=== PATIENT | female | born 1970 | race African-American/Black ===

== ENCOUNTER → 2019-09-15 | Outpatient (CLI) | payer MEDICAID ==
[~2019-09-15] MED LIST: ERGO2000 PO; FERR-71 PO; HYDR12.54 PO; LISI40TA4 PO
== END | disposition home or self-care (01) ==
LOC: LAB 11:57 → MERGE 11:57
PROVIDERS: ATTEND Obstetrics & Gynecology
DX: Z01.818 Encounter for other preprocedural examination (principal); Z11.59 Encounter for screening for other viral diseases
CPT/HCPCS: U0003-CS

== ENCOUNTER 2019-09-19 08:16 | Inpatient (IN) | payer MEDICAID ==
[~2019-09-19] VITALS: Ht 157.5 cm; Wt 85.4 kg
[2019-09-19] MEDS ORDERED: LACTATED RINGERS 1,000 ML IV SCH (09:15)
[2019-09-19] MEDS ORDERED: ERGO2000 PO (09:40)
[2019-09-19] MEDS ORDERED: FERR-71 PO (09:40)
[2019-09-19] MEDS ORDERED: HYDR12.54 PO (09:40)
[2019-09-19] MEDS ORDERED: LISI40TA4 PO (09:40)
[2019-09-19 10:17] LABS: CLARITY URINE CLOUDY (CLEAR); COLOR URINE YELLOW (YELLOW); KETONES URINE NEGATIVE (NEGATIVE); LEUKOCYTE ESTERASE URINE 1+ (NEGATIVE); NITRITE URINE NEGATIVE (NEGATIVE); OCCULT BLOOD URINE NEGATIVE (NEGATIVE); PH URINE 7.5 (4.5-8.0); PROTEIN URINE NEGATIVE (NEGATIVE); SPECIFIC GRAVITY URINE 1.022 (1.005-1.030); UROBILINOGEN URINE 0.2 E.U./dL (0.2-1.0)
[2019-09-19 10:17] LABS: BASOPHILS % 0.6 % (0.0-2.0); HEMATOCRIT. 41.2 % (36.0-48.0); HEMOGLOBIN. 13.9 g/dL (12.0-16.0); LYMPHOCYTES % 16.6 % (20.0-50.0); MEAN CORPUSCULAR HEMOGLOBIN 31.6 pg (28.0-32.0); MEAN CORPUSCULAR VOLUME 93.5 fL (81.0-99.0); MEAN PLATELET VOLUME 8.9 fl (7.4-10.4); MONOCYTES % 5.8 % (2.0-8.0); PLATELET 268 x1000/uL (130-400); RED BLOOD CELL COUNT 4.41 mill/uL (4.2-5.4); RED CELL DISTRIBUTION WIDTH 14.8 % (11.6-14.6)
[2019-09-19 10:19] LABS: UCG SCREEN NEGATIVE
[2019-09-19 10:24] LABS: CHLORIDE 103 mEq/L (98-107)
[2019-09-19 10:29] LABS: INR 0.9; PARTIAL THROMBOPLASTIN TIME 26.2 sec (23.4-31.0); PROTHROMBIN TIME 10.3 sec (9.6-11.0)
[2019-09-19] MEDS ORDERED: SKIN ADHESIVE 0.7 GM EA TOP ONE ×2 (11:55→19:51)
[2019-09-19] MEDS ORDERED: BUPIVACAINE HCL/PF 0.75% (7.5MG/ML) 10ML ONE (11:55)
[2019-09-19] MEDS ORDERED: NORMAL SALINE 0.9% 10 ML SYR ONE (11:57)
[2019-09-19] MEDS ORDERED: VASOPRESSIN 20 UNIT/ML 1ML ONE (11:59)
[2019-09-19] MEDS ORDERED: MIDAZOLAM HCL 2 MG/2 ML VIAL ONE (12:54)
[2019-09-19] MEDS ORDERED: FENTANYL CITRATE/PF 50MCG/ML 2ML VIAL ONE ×2 (12:54→15:52)
[2019-09-19] MEDS ORDERED: SUCCINYLCHOLINE CHLORIDE 200MG/10ML IV ONE (12:55)
[2019-09-19] MEDS ORDERED: LIDOCAINE HCL/PF 1% 10 MG/ML 5ML VIAL ONE (12:55)
[2019-09-19] MEDS ORDERED: ROCURONIUM BROMIDE 10MG/ML VIAL 5ML IV ONE ×2 (12:55→13:04)
[2019-09-19] MEDS ORDERED: PROPOFOL 200MG/20ML VIAL IV ONE (12:55)
[2019-09-19] MEDS ORDERED: CEFAZOLIN SODIUM 1000MG/VIAL ONE (13:12)
[2019-09-19] MEDS ORDERED: SODIUM CHLORIDE 0.9% 10ML VIAL ONE (13:13)
[2019-09-19] MEDS ORDERED: ONDANSETRON HCL 4MG/2ML INJ ONE ×2 (13:15→13:17)
[2019-09-19] MEDS ORDERED: DEXAMETHASONE 4MG/ML 1ML VIAL ONE (13:15)
[2019-09-19] MEDS ORDERED: KETOROLAC 30MG/ML VIAL ONE (15:50)
[2019-09-19] MEDS ORDERED: ONDANSETRON HCL 4MG/2ML INJ IV PRN (17:00)
[2019-09-19] MEDS: HYDROMORPHONE HCL/PF 2MG/ML CPJ IV PRN ×3 (17:18→17:51)
[2019-09-19 20:30] VITALS: BP_SYST 137; BP_SYST 139; BP_DIAS 77
[2019-09-19] MEDS ORDERED: HYDROMORPHONE HCL/PF 2MG/ML CPJ IV PRN (21:00)
[2019-09-20] VITALS: BP 132/72
[2019-09-20 04:00] VITALS: BP 127/62
[2019-09-20 08:00] VITALS: BP 148/75
[2019-09-20] MEDS ORDERED: HYDROCODONE/ACETAMINOPHEN 5/325MG TABLET PO PRN (08:45)
[2019-09-20 10:24] VITALS: BP 145/93
== END 2019-09-20 11:15 | disposition home or self-care (01) | DRG 519 ==
LOC: OR 08:16 → 6EST 20:30
PROVIDERS: ADMIT Internal Medicine; ATTEND Obstetrics & Gynecology
PROC: 0UB94ZZ Excision of Uterus, Percutaneous Endoscopic Approach (ICD-10-PCS; principal; 2019-09-19)
PROC: 8E0W4CZ Robotic Assisted Procedure of Trunk Region, Percutaneous Endoscopic Approach (ICD-10-PCS; 2019-09-19)
DX: D25.9 Leiomyoma of uterus, unspecified (principal)
CPT/HCPCS: 36415; 80048; 81003; 81025; 85025; 86850; 86900; 88305; 93005; J0330; J0690; J1100; J1170; J1885; J2250; J2405; J2704; J3010; J3490